=== PATIENT | female | born 1990 | race Two or more races ===

== ENCOUNTER 2024-12-23 15:40 | Emergency (ER) | payer OTHER ==
[~2024-12-23] VITALS: Ht 162.6 cm; Wt 62.1 kg
[2024-12-23] MEDS ORDERED: ACETAMINOPHEN ES 500 MG TABLET ONE (16:09)
[2024-12-23] MEDS: ACETAMINOPHEN ES 500 MG TABLET PO ONE (16:11)
[2024-12-23] MEDS ORDERED: METHOCARBAMOL (500MG) 500 MG TABLET ONE (17:38)
[2024-12-23] MEDS ORDERED: KETOROLAC TROMETHAMINE 15 MG/ML VIAL ONE (17:38)
[2024-12-23] MEDS: METHOCARBAMOL (500MG) 500 MG TABLET PO ONE (17:45)
[2024-12-23] MEDS: KETOROLAC TROMETHAMINE 15 MG/ML VIAL IM ONE (17:45)
[2024-12-23] MEDS ORDERED: NAPR500T6 PO (17:46)
[2024-12-23] MEDS ORDERED: METH-647 PO (17:46)
[2024-12-23 18:24] VITALS: BP 129/78; TEMP 97.9; O2SAT 100
== END 2024-12-23 18:25 | disposition home or self-care (01) ==
LOC: ER 15:47
DX: M54.9 Dorsalgia, unspecified (principal); R07.9 Chest pain, unspecified
CPT/HCPCS: 99283; 71045; 96372; J1885